=== PATIENT | female | born 1950 ===

== ENCOUNTER 2018-06-29 14:35 | Outpatient (CLI) | payer MEDICARE, MEDICAID | END 2018-06-29 14:36 | disposition home or self-care (01) | LOC: C.MAMMO 14:35 | DX: Z12.39 Encounter for other screening for malignant neoplasm of breast (principal) ==

== ENCOUNTER 2018-07-15 13:42 | Outpatient (CLI) | payer MEDICARE, MEDICAID | END 2018-07-15 13:43 | disposition home or self-care (01) | LOC: C.MAMMO 13:42 ==

== ENCOUNTER 2018-10-22 13:15 | Outpatient (CLI) | payer MEDICARE, MEDICAID | END 2018-10-22 13:16 | disposition home or self-care (01) | LOC: C.USIC 13:15 ==

== ENCOUNTER 2018-10-26 13:47 | Outpatient (CLI) | payer MEDICARE, MEDICAID | END 2018-10-26 13:48 | disposition home or self-care (01) | LOC: C.DEXAIC 13:47 ==